=== PATIENT | male | born 1960 | race Hispanic/Latino ===

== ENCOUNTER 2021-03-09 20:16 | Emergency (ER) | payer OTHER ==
[~2021-03-09] VITALS: Ht 160 cm; Wt 67.1 kg
[2021-03-09 20:25] VITALS: BP 139/84
[2021-03-09 22:47] LABS: BASOPHILS % (AUTO) 0.1 % (0.0-5.0); EOSINOPHILS % (AUTO) 0.5 % (0.0-8.0); HEMATOCRIT 42.7 % (42-54); LYMPHOCYTES % (AUTO) 16.7 % (21.0-51.0); MEAN CORPUSCULAR HGB CONC 33.5 g/dL (32.0-36.0); MEAN CORPUSCULAR VOLUME 101.4 fL (79-99); NEUTROPHILS % (AUTO) 72.4 % (40.0-77.0); PLATELET COUNT (AUTO) 271 K/uL (130-400); RED BLOOD CELL COUNT(AUTO) 4.21 MIL/uL (4.50-6.20); WHITE BLOOD COUNT (AUTO) 9.4 K/uL (4.8-10.8)
[2021-03-09] MEDS ORDERED: TETRACAINE HCL 0.5% 15 ML OPHTH SOLN OP SCH (23:15)
[2021-03-09] MEDS ORDERED: ERYTHROMYCIN BASE 0.5% OPHTH OINT 1 GM TUBE OU SCH (23:15)
[2021-03-09] MEDS: FLUORESCEIN SODIUM 1 STRIP STRIP OP SCH (23:22)
[2021-03-09 23:23] LABS: CREATININE 0.9 mg/dL (0.5-1.5); POTASSIUM 3.9 mmol/L (3.5-5.1)
[2021-03-09 23:28] LABS: ALBUMIN 3.3 g/dL (3.5-5.0); BILIRUBIN,TOTAL 0.4 mg/dL (0.2-1.0); TOTAL PROTEIN, SERUM 8.4 g/dL (6.0-8.3)
[2021-03-09] MEDS ORDERED: MOXIOS OP (23:59)
[2021-03-10] MEDS: FLUORESCEIN SODIUM 1 STRIP STRIP OP SCH
[2021-03-10] MEDS ORDERED: GENTAMICIN SULFATE 0.3% 3.5 GM OPHTH OINT OU SCH
[2021-03-10 00:30] VITALS: BP 145/74
== END 2021-03-10 00:32 | disposition home or self-care (01) ==
LOC: EDH 20:16
DX: H16.002 Unspecified corneal ulcer, left eye (principal); Z79.899 Other long term (current) drug therapy
CPT/HCPCS: 36415; 80053; 85025

== ENCOUNTER 2021-03-23 21:40 | Emergency (ER) | payer OTHER ==
[~2021-03-23] VITALS: Ht 152.4 cm; Wt 74.8 kg
[~2021-03-23 21:40] MED LIST: MOXIOS OP
[2021-03-23 21:47] VITALS: BP 135/81
[2021-03-23] MEDS ORDERED: KETOROLAC 60 MG VIAL (30MG/ML) IM ONE (23:45)
[2021-03-23] MEDS ORDERED: CYCLOBENZAPRINE HCL 10 MG TABLET PO ONE (23:45)
[2021-03-23] MEDS ORDERED: ORPH-43 PO (23:51)
[2021-03-23] MEDS ORDERED: MELO7.5T12 PO (23:51)
[2021-03-24 00:35] VITALS: BP 135/77
== END 2021-03-24 00:35 | disposition home or self-care (01) ==
LOC: EDH 21:40
DX: R51.9 Headache, unspecified (principal); Z79.1 Long term (current) use of non-steroidal anti-inflammatories (NSAID)
CPT/HCPCS: 96372; 99283; J1885